=== PATIENT | female | born 1955 | race Caucasian/White ===

== ENCOUNTER 2024-07-09 08:24 | Day surgery (SDC) | payer MEDICARE, BC ==
[~2024-07-09 08:24] MED LIST: Sodium Chloride 0.9% 10 ML Syringe FLUSH PRN; Sodium Chloride 0.9% 2.5 ML Syringe FLUSH PRN; Sodium Chloride 0.9% 20 ML SDV IV PRN
[2024-07-09] MEDS: Lactated Ringers 1,000 ML IV SCH (09:12)
[2024-07-09] MEDS ORDERED: propofoL 50 ML ONE (11:13)
== END 2024-07-09 12:35 | disposition home or self-care (01) ==
LOC: MW.SDS 08:24
PROVIDERS: ATTEND Surgery
DX: Z12.11 Encounter for screening for malignant neoplasm of colon (principal); R19.5 Other fecal abnormalities; D12.3 Benign neoplasm of transverse colon; D12.2 Benign neoplasm of ascending colon; I10 Essential (primary) hypertension; K21.9 Gastro-esophageal reflux disease without esophagitis; E78.00 Pure hypercholesterolemia, unspecified; Z79.899 Other long term (current) drug therapy; Z88.0 Allergy status to penicillin; Z91.041 Radiographic dye allergy status; Z88.2 Allergy status to sulfonamides
CPT/HCPCS: 45380; 45385; J2704; J7120; 00811; 88305